=== PATIENT | female | born 1990 | race Caucasian/White ===

== ENCOUNTER 2017-05-05 16:22 | Outpatient (CLI) | payer MEDICAID ==
--- NOTE | 2017-05-05 16:48 | Non Stress Test Report ---
Non Stress Test Datetime Report Generated by CPN: 05/05/2017 16:48 INDICATION Indication for Study: Ordered by Provider VITAL SIGNS Temperature - NST: 97.9 Pulse - NST: 111 RESP - NST: 20 NBPSYS NST: 120 NBPDIA NST: 59 MONITORING Monitor Explained: Monitor Explained; Test Explained; Patient Verbalized Understanding Time on Monitor: 05/05/2017 16:26 Time off Monitor: 05/05/2017 16:47 NST Duration: 21 NST INTERVENTIONS NST Interventions: PO Hydration; Reposition Patient Physician Notified NST: A Emmel CNM BABY A: [id number] BABY A Movement : Present Contraction Frequency : 0 FHR Baseline : 140 Accelerations : 15X15 Decelerations : None Variability : Moderate 6-25bpm NST Review: Meets Criteria for Reactive NST NST Review and Verified By : Alma Cespedes RN NST Results: Reactive NST REPORT Report Trigger: Send Report
== END 2017-05-05 16:49 | disposition home or self-care (01) ==
LOC: LC 16:22
PROVIDERS: ATTEND Obstetrics & Gynecology
PROC: 4A1HXCZ Monitoring of Products of Conception, Cardiac Rate, External Approach (ICD-10-PCS; principal; 2017-05-05)
DX: Z34.93 Encounter for supervision of normal pregnancy, unspecified, third trimester (principal); Z36 Encounter for antenatal screening of mother; Z3A.39 39 weeks gestation of pregnancy
CPT/HCPCS: 59025